=== PATIENT | male | born 2000 | race Caucasian/White ===

== ENCOUNTER 2025-04-08 19:15 | Emergency (ER) | payer BC, SELFPAY ==
--- NOTE | ~2025-04-08 | XR_ITS ---
Examination: XR chest 2V Clinical History: cough with wheezing Comparison: None Technique: PA and Lateral Findings: Cardiomediastinal silhouette normal size and configuration. Lungs clear. No acute bony abnormality. IMPRESSION: 1. No acute cardiopulmonary findings. Reviewed, dictated and finalized at location R.
[2025-04-08 19:20] VITALS: BP 143/94; PULSE 85; RESP 17; TEMP 36.6; O2SAT 100
--- NOTE | 2025-04-08 19:23 | ED.ASTHMA ---
HPI - Asthma General Chief Complaint: Asthma Stated Complaint: SOB Time Seen by Provider: 04/08/25 19:21 History of Present Illness HPI Narrative: 25-year-old male patient with known history of exercise-induced asthma otherwise healthy he is here with complaints of cough congestion and wheezing for the last several days progressively getting worse. Reports no fever or chills. Has had some congestion of sinuses. Denies any sore throat . Patient states that he smokes cannabis but no cigarettes. No known exposure to anybody with similar symptoms. Has experienced body aches off and on in the last few days. Related Data Allergies Allergy/AdvReac Type Severity Reaction Status Date / Time No Known Allergies Allergy Verified 04/08/25 19:24 Review of Systems Review of Systems: All systems reviewed & are unremarkable except as noted in HPI and below Exam Narrative: Alert male patient who appears only mild discomfort with tight wheezy cough. No obvious respiratory distress. Vital signs are stable. Patient is afebrile. HEENT normal.. Oral mucous membranes are pink and moist. Posterior pharyngeal wall is normal without any evidence of erythema or exudate. Uvula is midline. Neck is supple. Breath sounds are audible bilaterally under associated with wheezes throughout the lung [place]. No retractions noted. Heart tones regular . Abdomen is soft and nontender. Extremities within normal limits. Skin is warm and dry hand color is normal. Neurologic exam is grossly normal. Mood and affect are normal. Course Vital Signs Vital signs: Vital Signs Oxygen Delivery Room Air 04/08/25 19:15 Temperature 36.6 C 04/08/25 19:20 Pulse Rate 83 04/08/25 19:40 Respiratory Rate 20 04/08/25 19:40 Blood Pressure 143/94 H 04/08/25 19:20 Pulse Oximetry 100 04/08/25 19:40 Oxygen Delivery Room Air 04/08/25 19:20 MDM - Asthma MDM Narrative Medical decision making narrative: 25-year-old male patient with known history of exercise-induced asthma is here with complaints of wheezing and coughing congestion for the last few days. Detailed H&P is documented. Chest x-ray does not show any pneumonia. COVID RSV and influenza negative. Patient has responded very well to albuterol nebulizer treatment and he has also received 1 dose of prednisone. He will be discharged home with prednisone taper as well as a prescription for albuterol inhaler. His blood pressure in the ER has remained high 143/94 however he does not have any prior history of hypertension. He will be advised to keep track of his blood pressure and make a log and follow-up with his primary care provider to discuss it further. Differential Diagnosis Differential diagnosis: Likely Acute exacerbation, Status asthmaticus, Acute asthmatic bronchitis, Pneumonia and other (viral illness) Lab Data Labs: Lab Results 04/08/25 Range/Units 19:34 Influenza A (RT-PCR) Negative (Negative) Influenza B (RT-PCR) Negative (Negative) SARS-CoV-2 RNA (RT-PCR) Negative (Negative) Discharge Plan Discharge Clinical Impression: Acute asthmatic bronchitis Patient Disposition: Home Condition: Stable Instructions: Asthma (ED) Additional Instructions: Stay well-hydrated. Avoid smoking or exposure to smoke. Medications as prescribed keep a log of your blood pressure for the next week and follow-up with your primary care provider to address the blood pressure. Take Robitussin DM for cough Patient Language: Occitan Prescriptions: New albuterol sulfate [Ventolin HFA] 90 mcg/actuation HFA aerosol inhaler 2 puff inhalation QID Qty: 8.5 0RF prednisone 10 mg tablet 10 mg PO BID Qty: 10 0RF Follow-up/Referrals: UNKNOWN,DOCTOR [Non-Staff] Stand Alone Forms: Work/School Release IP Time of Disposition: 20:38
[2025-04-08] MEDS: ALBUTEROL SULFATE NEB 2.5 MG/3 ML INH INHALATION (19:30)
[2025-04-08 19:40] VITALS: PULSE 83; RESP 20; O2SAT 100
[2025-04-08 20:24] LABS: Influenza A QL RT-PCR Negative (Negative); Influenza B QL RT-PCR Negative (Negative); SARS-CoV-2 RNA PCR Negative (Negative)
[2025-04-08 20:46] VITALS: BP 126/75; PULSE 88; RESP 20; O2SAT 100
== END 2025-04-08 20:46 | disposition home or self-care (01) ==
PROVIDERS: Emergency Provider Emergency Medicine; PCP Family Medicine
DX: J45.901 Unspecified asthma with (acute) exacerbation (principal); Z20.822 Contact with and (suspected) exposure to COVID-19
CPT/HCPCS: 71046; 87636; 94640; 99283; J7512